=== PATIENT | male | born 1950 | race Caucasian/White ===

== ENCOUNTER 2021-05-24 13:00 | Outpatient (RCR) | payer OTHER, SELFPAY | END 2021-05-26 23:59 | disposition home or self-care (01) | LOC: CR 13:00 | PROVIDERS: Visit Provider Family Medicine | DX: Z51.89 Encounter for other specified aftercare (principal); Z95.1 Presence of aortocoronary bypass graft | CPT/HCPCS: S9472 ==

== ENCOUNTER 2021-05-29 14:39 | Outpatient (RCR) | payer OTHER, SELFPAY | END 2021-06-22 16:31 | LOC: CR 14:39 | PROVIDERS: Visit Provider Family Medicine | DX: Z51.89 Encounter for other specified aftercare (principal); Z95.1 Presence of aortocoronary bypass graft | CPT/HCPCS: S9472 ==

== ENCOUNTER 2021-06-26 13:00 | Outpatient (RCR) | payer OTHER, SELFPAY | END 2021-06-26 23:59 | disposition home or self-care (01) | LOC: CR 13:00 | PROVIDERS: Visit Provider Family Medicine | DX: Z51.89 Encounter for other specified aftercare (principal); Z95.1 Presence of aortocoronary bypass graft | CPT/HCPCS: S9472 ==

== ENCOUNTER 2021-07-19 13:00 | Outpatient (RCR) | payer OTHER, SELFPAY | END 2021-07-24 23:59 | disposition home or self-care (01) | LOC: CR 13:00 | PROVIDERS: Visit Provider Family Medicine | DX: Z95.1 Presence of aortocoronary bypass graft (principal); Z51.89 Encounter for other specified aftercare | CPT/HCPCS: S9472 ==

== ENCOUNTER 2021-07-28 13:00 | Outpatient (RCR) | payer OTHER, SELFPAY | END 2021-08-24 23:59 | disposition home or self-care (01) | LOC: CR 13:00 | PROVIDERS: Visit Provider Family Medicine | DX: Z51.89 Encounter for other specified aftercare (principal); Z95.1 Presence of aortocoronary bypass graft | CPT/HCPCS: S9472 ==